=== PATIENT | male | born 1960 | race Caucasian/White ===

== ENCOUNTER 2020-09-08 08:29 | Outpatient (CLI) | payer BC, SELFPAY ==
--- NOTE | 2020-09-08 08:37 | ECHO_ITS ---
Patient Info Name: Beni Garcia Age: 59 years : 1960 Gender: Male Ht: 72 in Wt: 218 lbs BSA: 2.26 m2 BP: 117 / 77 mmHg Technical Quality: Good Exam Date: 09/08/2020 9:00 AM Exam Location: [facility] Patient Status: Outpatient Admit Date: 09/08/2020 Staff Ordering Physician: Janny Felipe NP Supervisor Chassis Assembly: Tammy Preston RDCS Attending Provider: Miri Salgado MD Referring Physician: Matteo ESCALERA; Exam Type: CA echo doppler color flow Study Info Indications I44.0 - Atrioventricular block, first degree Complete two-dimensional, color flow and Doppler transthoracic echocardiogram is performed. Summary 1. Complete two-dimensional, color flow and Doppler transthoracic echocardiogram is performed. 2. Left ventricular chamber dimension is normal. 3. Left ventricular systolic function is normal, estimated at 60-65%. 4. The left ventricular diastolic function is normal. 5. E/e' 9 is minimally elevated. 6. There is mild aortic valve sclerosis. 7. There is trace aortic valve regurgitation. 8. There is trace mitral valve regurgitation. 9. No pulmonary hypertension, estimated pulmonary arterial systolic pressure is 22 mmHg. Left Ventricle E/e' 9 is minimally elevated. Left ventricular chamber dimension is normal. Left ventricular systolic function is normal, estimated at 60-65%. The left ventricular diastolic function is normal. Right Ventricle Right ventricular chamber dimension is normal. Right ventricular systolic function is normal. Left Atria Left atrial chamber dimension is normal. Right Atria Right atrial chamber dimension is normal. Aortic Valve The aortic valve is trileaflet. There is mild aortic valve sclerosis. There is no aortic valve stenosis. There is trace aortic valve regurgitation. Pulmonic Valve There is no pulmonic regurgitation. Mitral Valve There is no mitral valve stenosis. There is trace mitral valve regurgitation. Tricuspid Valve There is no tricuspid valve regurgitation. No pulmonary hypertension, estimated pulmonary arterial systolic pressure is 22 mmHg. Pericardium/Pleural There is no pericardial effusion. Inferior Vena Cava Normal inferior vena cava with >50% collapse upon inspiration consistent with normal right atrial pressure, 5 mmHg. Aorta The aortic root size at the sinus of Valsalva is normal. Left Ventricular Outflow Tract Name Value Normal LVOT 2D LVOT Diameter 2.0 cm LVOT Doppler LVOT Peak Gradient 3 mmHg LVOT Mean Gradient 2 mmHg LVOT VTI 20 cm LVOT VTI/AV VTI Ratio 0.9 LVOT Stroke Volume 64 ml LVOT CO 3.9 l/min LVOT CI 1.7 l/min/m2 Pulmonic Valve Name Value Normal RVOT Doppler
== END 2020-09-08 08:30 | disposition home or self-care (01) ==
PROVIDERS: PCP Family Medicine; Visit Provider Family Medicine
DX: I44.0 Atrioventricular block, first degree (principal); I35.0 Nonrheumatic aortic (valve) stenosis
CPT/HCPCS: 93306

== ENCOUNTER 2024-02-22 07:39 | Outpatient (CLI) | payer BC, SELFPAY ==
--- NOTE | ~2024-02-22 | MR_ITS ---
MRI of the right knee Clinical history: Pain Technique: Coronal proton density and proton density-weighted images, sagittal proton-density and T2 fat-sat images, and axial proton-density fat-saturated images were acquired. Findings: Anterior and posterior cruciate ligaments are intact. Medial collateral ligament and the la teral collateral ligament complex are intact. Popliteus tendon is intact. There is complex tearing of the posterior horn and body of the medial meniscus. No lateral meniscal t ear evident. There is high-grade chondromalacia along the medial patellar facet. There is moderate chondromalacia at the medial joint line. Bone marrow signals are intact. Extensor mechanism is intact. Small joint effusion present. No Matamoros's cyst. Impression: Complex tearing of the posterior horn and body of medial meniscus. 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 Small joint effusion. Reviewed, dictated and finalized at [facility]. Impression: Complex tearing of the posterior horn and body of medial meniscus. 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 Small joint effusion.
== END 2024-02-22 07:40 ==
LOC: MICIMG 07:39
PROVIDERS: PCP Family Medicine
DX: S83.231A Complex tear of medial meniscus, current injury, right knee, initial encounter (principal); M94.261 Chondromalacia, right knee; M25.461 Effusion, right knee; M25.561 Pain in right knee; G89.29 Other chronic pain
CPT/HCPCS: 73721

== ENCOUNTER 2024-09-05 00:31 | Day surgery (SDC) | payer BC, SELFPAY ==
[2024-08-29 13:02] VITALS: BMI 31.4
[2024-09-05 10:05] VITALS: BP 144/96; PULSE 85; RESP 20; TEMP 36.1; O2SAT 99; BMI 30.5
[2024-09-05] MEDS: LACTATED RINGERS 1,000 ML 150 ML IV CONT (10:26)
--- NOTE | 2024-09-05 10:31 | WPDANESEPPF ---
Anes - Initial Pre Proc Eval Procedure: Operation Date: 09/05/24 11:30 Proposed Procedures p Screening Colonoscopy - Morgan Holder MD Date/Time: 09/05/24 10:31 Surgeon: Morgan Holder MD Pre Op Diagnosis: neoplasm screening Patient Data Age: 63 Gender: M Height: 1.83 m Weight: 102.2 kg Last Vital Signs Temp 36.1 C L 09/05/24 10:05 Pulse 85 09/05/24 10:05 Resp 20 09/05/24 10:05 BP 144/96 H 09/05/24 10:05 Pulse Ox 99 09/05/24 10:05 O2 Del Method Room Air 09/05/24 10:05 Allergies Allergy/AdvReac Type Severity Reaction Status Date / Time No Known Allergies Allergy Mild Verified 09/05/24 10:11 Home Medications ?Medication ?Instructions ?Recorded ?Confirmed ?Type zolpidem 10 mg tablet (Ambien) 10 mg PO ONCE PRN sleep #30 tabs 08/12/19 09/05/24 Rx omeprazole 20 mg capsule,delayed 20 mg PO DAILY PRN heartburn #1 cap 02/22/22 09/05/24 Rx release tadalafil 5 mg tablet (Cialis) 5 mg PO DAILY #90 tabs 12/07/23 09/05/24 Rx ezetimibe 10 mg-simvastatin 20 mg 1 tablet PO DAILY #90 tabs 02/01/24 09/05/24 Rx tablet (Vytorin) alprazolam 0.5 mg tablet (Xanax) 0.5 mg PO TID PRN anxiety #75 tabs 04/23/24 09/05/24 Rx diclofenac sodium 75 mg 75 mg PO BID 08/29/24 09/05/24 History tablet,delayed release Patient hx anesthesia problems: none Family hx anesthesia problems: none Results Review: All pre-operative results and documents have been reviewed as part of the pre-operative evaluation. 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 Vitamin D deficiency Screening for colon cancer Encounter for special screening examination for neoplasm of prostate Former smoker BPH (benign prostatic hyperplasia) RLS (restless legs syndrome) Psoriasis Normal colonoscopy [address] Erectile dysfunction Insomnia Hyperlipidemia Surgical History Surgical History Hx of appendectomy (~1969) Anxiety Social History Social History Years smoked: 20 Smoking status: Former smoker Tobacco type: cigarettes Second hand tobacco smoke exposure: No Smoking end date: 09/18/11 Alcohol intake: current Lack of Transportation: No Lack of Food: Never True Current Housing: I Have Housing Concerned About Future Housing: No Difficulty Paying Gas/Electric Bills: No Difficulty Paying for Meds: No Currently Unemployed: No Education: Bachelor's Degree Difficulty w/ Childcare or Family Care: No Living arrangements: alone Additional living arrangements comments: Occupation/Education: occupation 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 Informed Consent: The patient's anesthetic plan and its attendant risks and benefits were discussed with the patient/family/POA. Questions were solicited and answers provided to the satisfaction of the patient/family/POA.
--- NOTE | 2024-09-05 11:09 | P.HP_ITS ---
H&P: HPI History of Present Illness Date/Time: 09/05/24 11:09 Chief Complaint: Screening colonoscopy Narrative: This is the patient's secpnd colonoscopy after 13 years. There are no GI symptoms and there is no family history of colorectal cancer. 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 Vitamin D deficiency Screening for colon cancer Encounter for special screening examination for neoplasm of prostate Former smoker BPH (benign prostatic hyperplasia) RLS (restless legs syndrome) Psoriasis Normal colonoscopy [address] Erectile dysfunction Insomnia Hyperlipidemia Surgical History Surgical History Hx of appendectomy (~1968) Anxiety Social History Social History Years smoked: 20 Smoking status: Former smoker Tobacco type: cigarettes Second hand tobacco smoke exposure: No Smoking end date: 09/18/11 Alcohol intake: current Lack of Transportation: No Lack of Food: Never True Current Housing: I Have Housing Concerned About Future Housing: No Difficulty Paying Gas/Electric Bills: No Difficulty Paying for Meds: No Currently Unemployed: No Education: Bachelor's Degree Difficulty w/ Childcare or Family Care: No Living arrangements: alone Additional living arrangements comments: Occupation/Education: occupation 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 Gender identity (if verbalized by the patient): Male Meds Home Medications and Allergies Home Medications ?Medication ?Instructions ?Recorded ?Confirmed ?Type zolpidem 10 mg tablet (Ambien) 10 mg PO ONCE PRN sleep #30 tabs 08/12/19 09/05/24 Rx omeprazole 20 mg capsule,delayed 20 mg PO DAILY PRN heartburn #1 cap 02/22/22 09/05/24 Rx release tadalafil 5 mg tablet (Cialis) 5 mg PO DAILY #90 tabs 12/07/23 09/05/24 Rx ezetimibe 10 mg-simvastatin 20 mg 1 tablet PO DAILY #90 tabs 02/01/24 09/05/24 Rx tablet (Vytorin) alprazolam 0.5 mg tablet (Xanax) 0.5 mg PO TID PRN anxiety #75 tabs 04/23/24 09/05/24 Rx diclofenac sodium 75 mg 75 mg PO BID 08/29/24 09/05/24 History tablet,delayed release Allergies Allergy/AdvReac Type Severity Reaction Status Date / Time No Known Allergies Allergy Mild Verified 09/05/24 10:11 Vital Signs Vital Signs - 24 hr 09/05/24 10:05 Temperature 96.9 F L Pulse Rate 85 Respiratory Rate 20 Blood Pressure 144/96 H Pulse Oximetry 99 Oxygen Delivery Room Air Exam Const: General: cooperative and healthy appearing Resp: Effort & Inspection: normal respiratory effort and able to speak in complete sentences Auscultation: clear to auscultation bilaterally Cardio: Rate: regular rate Rhythm: regular rhythm GI: Inspection: normal to inspection GI Palp: No No hepatosplenomegaly present Auscultation: normal bowel sounds Rectal Exam: deferred Skin: General skin exam: normal color Psych: Appearance: grossly normal Mental Status: mental status grossly normal Assessment and Plan Assessment and plan (1) Screening for colon cancer: Code(s): Z12.11 - Encounter for screening for malignant neoplasm of colon Status: Acute Assessment and Plan: The patient is deemed a good candidate for the procedure. Consent signed. Will proceed.
[2024-09-05 11:39] VITALS: BP 103/68; PULSE 92; RESP 19; O2SAT 97
[2024-09-05 11:49] VITALS: BP 125/88; PULSE 86; RESP 20; O2SAT 98
[2024-09-05 11:59] VITALS: BP 137/91; PULSE 81; RESP 21; O2SAT 99
== END 2024-09-05 12:14 | disposition home or self-care (01) ==
PROVIDERS: PCP Family Medicine; Referring Provider Nurse Practitioner Family; Visit Provider Internal Medicine Gastroenterology
PROC: 0DJD8ZZ Inspection of Lower Intestinal Tract, Via Natural or Artificial Opening Endoscopic (ICD-10-PCS; CPT 45378; principal; 2024-09-05 11:30)
DX: Z12.11 Encounter for screening for malignant neoplasm of colon (principal); D17.5 Benign lipomatous neoplasm of intra-abdominal organs; K57.30 Diverticulosis of large intestine without perforation or abscess without bleeding; K64.1 Second degree hemorrhoids; Z87.891 Personal history of nicotine dependence
CPT/HCPCS: 45385; 88305; J2003; J2704; J7120